=== PATIENT | female | born 1995 | race Caucasian/White ===

== ENCOUNTER 2018-05-28 09:48 | Emergency (ER) | payer BC ==
[2018-05-28] MEDS ORDERED: LIDOCAINE 1% W/ EPINEPHRINE 20 ML VIAL INJ ONE (09:58)
[2018-05-28 10:06] VITALS: BP 113/72; TEMP 98.4; O2SAT 99
[2018-05-28] MEDS ORDERED: SULFA/TRIMETH 800/160 (DS) TAB 1 EA TAB PO ONE (10:17)
--- NOTE | 2018-05-28 10:17 | ED.PDOC ---
History of Present Illness - General Chief Complaint: Laceration Stated Complaint: LACERATION TO LEFT FOREARM Time Seen by Provider: 05/28/18 10:14 Source: patient Exam Limitations: no limitations - History of Present Illness Initial Comments: the patient is a 22-year-old female presenting to the emergency room secondary to sustaining a laceration to her proximal left volar forearm. Laceration is approximately two thirds of an inch in length. It is superficial and only through the skin. She is neurovascularly intact distally. This occurred because a stuffed elk head fell off of the wall. Timing/Duration: unsure Severity: mild Improving Factors: nothing Worsening Factors: nothing Associated Symptoms: denies symptoms Allergies/Adverse Reactions: Allergies Penicillins Allergy (Verified 05/28/18 10:05) Home Medications: Ambulatory Orders NK [NK] 05/28/18 Review of Systems - Review of Systems Constitutional: States: no symptoms reported EENTM: States: no symptoms reported Respiratory: States: no symptoms reported Cardiology: States: no symptoms reported Gastrointestinal/Abdominal: States: no symptoms reported Genitourinary: States: no symptoms reported Musculoskeletal: States: see HPI Skin: States: see HPI Neurological: States: no symptoms reported Endocrine: States: no symptoms reported All other Systems: No Change from Baseline Past Medical History (General) - Patient Medical History Hx Seizures: No Hx Stroke: No Hx Dementia: No Hx Asthma: No Hx of COPD: No Hx Cardiac Disorders: No Hx Congestive Heart Failure: No Hx Pacemaker: No Hx Hypertension: No Hx Thyroid Disease: No Hx Diabetes: No Hx Gastroesophageal Reflux: No Hx Renal Disease: No Hx Cancer: No Hx of HIV: No Hx Hepatitis C: No Hx MRSA: No Surgical History: no surgical history - Vaccination History Hx Tetanus, Diphtheria Vaccination: Yes Hx Influenza Vaccination: No Hx Pneumococcal Vaccination: No Immunizations Up to Date: Yes - Social History Hx Tobacco Use: No Hx Alcohol Use: Yes - Female History Patient is a Female of Child Bearing Age (10 -59 yrs old): Yes Hx Last Menstrual Period: 05/26/18 Patient : No Family Medical History - Family History Mother Family History: No Known Living Status: Still Living Physical Exam - Physical Exam General Appearance: Alert, Comfortable, No apparent distress Eye Exam: bilateral normal Ears, Nose, Throat: hearing grossly normal Neck: full range of motion Respiratory: no respiratory distress, no accessory muscle use Cardiovascular/Chest: normal peripheral pulses, no edema Peripheral Pulses: radial,right: 2+, radial,left: 2+ Rectal Exam: deferred Extremity: normal range of motion, normal capillary refill 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 Laceration is through the skin but not deeper. Risk and benefits of repair were explained and patient agreed to proceed. Wound was cleaned with hydrogen peroxide. Lidocaine with epinephrine was used 3 cc for local anesthetic. 2 simple sutures of 4-0 Ethilon were used for reapproximation. Patient tolerated the repair well. She was given a dose of Bactrim prophylactically. She is up-to-date on her tetanus. Sutures can come out and around 7 days. Monitor for any evidence of infection. ER warnings were given. Departure - Departure Clinical Impression: Accidental laceration Disposition: Discharge to Home or Self Care Condition: Fair Departure Forms: ED Discharge - Pt. Copy, Patient Portal Self Enrollment Instructions: DI for Laceration Repair, DI for Laceration Repair -- Simple Diet: regular diet Activity: increase activity as tolerated Home Medications: Ambulatory Orders NK [NK] 05/28/18 Additional Instructions: The patient's 22-year-old female presenting with a 2/3 inch laceration to the proximal left forearm. 2 simple sutures of 4-0 Ethilon were used for reapproximation. She was given a dose of Bactrim prophylactically. Sutures can come out and around 7 days. Monitor for any evidence of infection. ER warnings were given.
== END 2018-05-28 10:28 | disposition home or self-care (01) ==
LOC: ER 09:48
DX: S51.812A Laceration without foreign body of left forearm, initial encounter (principal); W20.8XXA Other cause of strike by thrown, projected or falling object, initial encounter; Z88.0 Allergy status to penicillin